=== PATIENT | male | born 1955 | race Caucasian/White ===

== ENCOUNTER 2021-01-23 10:40 | Emergency (ER) | payer MEDICARE, MEDICAID ==
[~2021-01-23] VITALS: Ht 182 cm; Wt 74.0 kg
--- NOTE | 2021-01-23 11:02 | ED General ---
General Stated Complaint: SOB Source of Information: Patient History of Present Illness Date Seen by Provider: Jan 23, 2021 Time Seen by Provider: 10:43 Initial Comments 65 yo male presenting with complaints of increasing shortness of breath, cough, syncope. He feels this might be pneumonia like he had about 2 years ago when he was living in [place]. He still had some left over penicillin from that time and took it. He felt that helped with his swelling in his legs and breathing but did not last. He was coughing and had 3 episodes of passing out last night. He woke up this morning and took a couple hours to cough and clear up his congestion. He used to be a smoker and quit about a year ago. He does not follow with a primary care provider. He did get the Ensenda vaccine this summer. He denies fever chills, chest pain, nausea, vomiting, diarrhea. He has swelling in his feet and cannot lay back because of increased shortness of breath. Associated Systoms: No Chest Pain; Cough; No Diaphoresis, No Fever/Chills, No Headaches, No Loss of Appetite, No Malaise, No Nausea/Vomiting, No Rash, No Seizure; Shortness of Air, Syncope, Weakness Allergies and Home Medications Allergies Coded Allergies: No Known Drug Allergies (Unverified , 01/23/21) Home Medications Azithromycin 250 Mg Tablet, 250 MG PO DAILY Prescribed by: BRENT RANDLE on 01/23/21 1411 Prednisone 20 Mg Tab, 40 MG PO DAILY Prescribed by: BRENT RANDLE on 01/23/21 1427 Patient Home Medication List Home Medication List Reviewed: Yes Review of Systems Review of Systems Constitutional: No chills, No fever EENTM: nose congestion Respiratory: see HPI, cough Cardiovascular: No chest pain; edema Gastrointestinal: no symptoms reported Genitourinary: no symptoms reported Musculoskeletal: no symptoms reported Skin: No rash Psychiatric/Neurological: Denies Headache, Denies Numbness, Denies Paresthesia Past Dubwcvc-Bbnhwf-Vuhzdj Hx Patient Social History Tobacco Use?: Yes Smoking Status: Former Smoker (quit in 2019) Past Medical History Respiratory: Yes Pneumonia (2019) Cardiac: No Neurological: No Genitourinary: No Gastrointestinal: No Musculoskeletal: No Endocrine: No Cancer: No Psychosocial: No Physical Exam Vital Signs Vital Signs - First Documented 01/23/21 10:45 Temp 36.5 Pulse 86 Resp 28 B/P (MAP) 148/91 (110) Pulse Ox 98 O2 Delivery Room Air Capillary Refill : Height, Weight, BMI Height: '" Weight: lbs. oz. kg; BMI Method: General Appearance: WD/WN, Mild Distress (increased work of breathing) HEENT: Pharynx Normal Neck: Full Range of Motion, Normal Inspection, Non Tender, Supple Respiratory: Chest Non Tender, No Accessory Muscle Use, No Respiratory Distress, Decreased Breath Sounds, Wheezing Cardiovascular: Regular Rate, Rhythm, Normal Peripheral Pulses Gastrointestinal: Normal Bowel Sounds, No Pulsatile Mass, Non Tender, Soft Extremity: Normal Capillary Refill, Pedal Edema (1 + pitting BLE edema to above ankles) Neurologic/Psychiatric: Alert, Oriented x3, mess cook II-XII Norm as Tested Skin: Normal Color, Warm/Dry Focused Exam Lactate Level 01/23/21 11:00: Lactic Acid Level 1.76 Lactic Acid Level Laboratory Tests Test 01/23/21 11:00 Lactic Acid Level 1.76 MMOL/L (0.50-2.00) Progress/Results/Core Measures Suspected Sepsis SIRS Temperature: Pulse: Respiratory Rate: Laboratory Tests 01/23/21 11:00: White Blood Count 11.0 Blood Pressure / Mean: 01/23/21 11:00: Lactic Acid Level 1.76 Laboratory Tests 01/23/21 11:00: Creatinine 0.76, INR Comment 0.9, Platelet Count 319, Total Bilirubin 0.5 Results/Orders Lab Results Laboratory Tests Test 01/23/21 11:00 01/23/21 11:14 Range/Units White Blood Count 11.0 4.3-11.0 10^3/uL Red Blood Count 5.16 4.30-5.52 10^6/uL Hemoglobin 16.3 13.3-17.7 g/dL Hematocrit 49 40-54 % Mean Corpuscular Volume 94 80-99 fL Mean Corpuscular Hemoglobin 32 25-34 pg Mean Corpuscular Hemoglobin Concent 34 32-36 g/dL Red Cell Distribution Width 13.4 10.0-14.5 % Platelet Count 319 130-400 10^3/uL Mean Platelet Volume 9.1 9.0-12.2 fL Immature Granulocyte % (Auto) 0 % Neutrophils (%) (Auto) 73 42-75 % Lymphocytes (%) (Auto) 16 12-44 % Monocytes (%) (Auto) 9 0-12 % Eosinophils (%) (Auto) 1 0-10 % Basophils (%) (Auto) 1 0-10 % Neutrophils # (Auto) 8.0 H 1.8-7.8 X 10^3 Lymphocytes # (Auto) 1.8 1.0-4.0 X 10^3 Monocytes # (Auto) 1.0 0.0-1.0 X 10^3 Eosinophils # (Auto) 0.1 0.0-0.3 10^3/uL Basophils # (Auto) 0.1 0.0-0.1 10^3/uL Immature Granulocyte # (Auto) 0.0 0.0-0.1 10^3/uL Prothrombin Time 12.9 12.2-14.7 SEC INR Comment 0.9 0.8-1.4 Activated Partial Thromboplast Time 31 24-35 SEC D-Dimer 0.31 0.00-0.49 UG/ML Sodium Level 136 135-145 MMOL/L Potassium Level 4.2 3.6-5.0 MMOL/L Chloride Level 95 L 98-107 MMOL/L Carbon Dioxide Level 29 21-32 MMOL/L Anion Gap 12 5-14 MMOL/L Blood Urea Nitrogen 12 7-18 MG/DL Creatinine 0.76 0.60-1.30 MG/DL Estimat Glomerular Filtration Rate 102 BUN/Creatinine Ratio 16 Glucose Level 135 H 70-105 MG/DL Lactic Acid Level 1.76 0.50-2.00 MMOL/L Calcium Level 9.3 8.5-10.1 MG/DL Corrected Calcium 8.9 8.5-10.1 MG/DL Total Bilirubin 0.5 0.1-1.0 MG/DL Aspartate Amino Transf (AST/SGOT) 28 5-34 U/L Alanine Aminotransferase (ALT/SGPT) 28 0-55 U/L Alkaline Phosphatase 63 40-136 U/L Troponin I < 0.30 <0.30 NG/ML C-Reactive Protein 0.30 <0.50 MG/DL Pro-B-Type Natriuretic Peptide 32.5 <75.0 PG/ML Total Protein 6.9 6.4-8.2 GM/DL Albumin 4.5 3.2-4.5 GM/DL Influenza Type A (RT-PCR) Not Detected Not Detecte Influenza Type B (RT-PCR) Not Detected Not Detecte SARS-CoV-2 RNA (RT-PCR) Not Detected Not Detecte My Orders Orders - BRENT RANDLE MD Monitor-Rhythm Ecg Trace Only (01/23/21 10:55) Ed Iv/Invasive Line Start (01/23/21 10:55) Cbc With Automated Diff (01/23/21 10:55) Comprehensive Metabolic Panel (01/23/21 10:55) Crp Fs (01/23/21 10:55) Troponin I Fs (01/23/21 10:55) Protime With Inr (01/23/21 10:55) Partial Thromboplastin Time (01/23/21 10:55) Ekg Tracing (01/23/21 10:55) Blood Culture (01/23/21 10:55) Covid 19 Inhouse Test (01/23/21 10:55) Lactic Acid Analyzer (01/23/21 10:55) Influenza A And B By Pcr (01/23/21 10:55) Probnp Fs (01/23/21 10:55) Fibrin Degradation Products (01/23/21 11:02) Chest 1 View Ap/Pa Only (01/23/21 11:02) Albuterol Inhaler (Albuterol) (01/23/21 11:30) Nursing Communication (Order) (01/23/21 11:27) Dexamethasone Injection (Decadron Inje (01/23/21 11:31) Ct Angio Chest W (01/23/21 11:32) Iohexol Injection (Omnipaque 350 Mg/Ml 1 (01/23/21 12:00) Received Contrast (Hold Metformin- Contr (01/23/21 12:00) Sodium Chloride Flush (Catheter Flush Sy (01/23/21 12:00) Ns (Ivpb) (Sodium Chloride 0.9% Ivpb Bag (01/23/21 12:00) Azithromycin Tablet (Zithromax Tablet) (01/23/21 14:13) Medications Given in ED Current Medications Medications Dose Ordered Sig/Sydni Route Start Time Stop Time Status Last Admin Dose Admin Albuterol Sulfate 2 PUFFS RTQ4HR PRN IH 01/23/21 11:30 01/23/21 15:07 DC 01/23/21 11:36 1 GM Iohexol 100 ml ONCE ONCE IV 01/23/21 12:00 01/23/21 12:01 DC 01/23/21 12:18 100 ML Sodium Chloride 10 ml NEEDED PRN IV 01/23/21 12:00 01/23/21 15:07 DC 01/23/21 12:18 10 ML Sodium Chloride 100 ml ONCE ONCE IV 01/23/21 12:00 01/23/21 12:01 DC 01/23/21 12:18 80 ML Vital Signs/I&O 01/23/21 01/23/21 10:45 14:25 Temp 36.5 36.5 Pulse 86 80 Resp 28 16 B/P (MAP) 148/91 (110) 136/80 (110) Pulse Ox 98 98 O2 Delivery Room Air Room Air Capillary Refill : Progress Note #1: Progress Note Check labs, ECG, CXR, blood culture, cardiac enzymes. His fingers were a little cool to touch and initially the O2 sat probe on his fingers was reading 83-85 % but with probe on his forehead it read 100% on room air. Send swab for Covid/Flu. Progress Note #2: Time: 11:29 Progress Note Patient told nurse that he was suffocating and could not breath and he needed an albuterol inhaler right away. Will order inhaler with spacer. CXR shows COPD changes to lung with hyperexpansion. He also has a 17 x 38 mm nodule in left lung. With no old films for comparison and since he has a smoking history will order CT chest with IV contrast. Add on a steroid to see if that helps his breathing as well. Progress Note #3: Time: 11:51 Progress Note CBC and chemistry are stable without acute significant normality. Coags and D- dimer negative. Cardiac enzymes are negative. Awaiting CT scan to evaluate the lung nodule and COPD changes. In the meantime the albuterol inhaler and steroids seem to be helping with his breathing. Progress Note #4: Progress Note CT angiogram negative for PE or infiltrate. Pulmonary nodule still present and radiology recommends a PET/CT scan or CT guided biopsy of the nodule to determine its severity of disease and what if any further treatment is needed. Otherwise he has pulmonary lung disease with COPD changes. Counseled patient on findings and follow-up. Advised to use inhaler with spacer as well as steroid burst and will give a Z-Nash in case there is some mild infection that he has not treated with his leftover antibiotic from home. Stressed importance of follow up with clinic at least for COPD if not for work up of the lung nodule. ECG Initial ECG Impression Date: Jan 23, 2021 Initial ECG Impression Time: 11:09 Initial ECG Rate: 80 Initial ECG Rhythm: Normal Sinus Initial ECG Comparisson: No Previous ECG Available Comment Normal sinus rhythm with a heart rate of [address] interval 157 ms. QT interval 381 ms with a QTc interval of 440 ms. There is baseline wander and artifact on the tracing. There is no prior tracing available for comparison. Diagnostic Imaging Diagonstic Imaging: Xray Plain Films/CT/US/NM/MRI: chest Comments NAME: MINOO LANTIGUA MED REC#: [id number] PT STATUS: REG ER : 1955 PHYSICIAN: BRENT RANDLE MD ADMIT DATE: 01/23/21/ER FS Draft Date of Exam:01/23/21 CHEST 1 VIEW AP/PA ONLY INDICATION: Short of breath. FINDINGS: The portable chest shows normal heart size and vascularity. There is obstructive airway disease. There is a 16 mm nodular density lateral to the left hilum which does not appear to be vascular. I am unable to determine if this is calcified. No infiltrate is seen. There is no effusion or pneumothorax. There is no acute bony abnormality. IMPRESSION: There is a 17 mm abnormal density lateral to the left hilum. This could be compared with old films, if available; otherwise, this could be evaluated further with a CT of the thorax. Dictated on workstation # [id number] Dict: 01/23/21 1122 Trans: 01/23/21 [facility]5 [id number] Interpreted by: MAURY FORD MD Electronically signed by: Reviewed: Reviewed by Me Diagonstic Imaging: CT Plain Films/CT/US/NM/MRI: chest Comments [facility] [place] NAME: MINOO LANTIGUA MED REC#: [id number] PT STATUS: REG ER : 1955 PHYSICIAN: BRENT RANDLE MD ADMIT DATE: 01/23/21/ER FS Signed Date of Exam:01/23/21 CT ANGIO CHEST W PROCEDURE: CT angiography of the chest with contrast. TECHNIQUE: Multiple contiguous axial images were obtained through the chest after uneventful bolus administration of intravenous contrast. 3D reconstructed CTA MIP acquisitions were also performed. Auto Exposure Controls were utilized during the CT exam to meet ALARA standards for radiation dose reduction. DATE: January 23, 2021. COMPARISON: Chest radiograph January 23, 2021. INDICATION: 65-year-old male, shortness of breath. Possible Covid 19 infection. FINDINGS: There are peripheral predominantly linear opacities in the superior aspect of the right lower lobe, most likely relating to focal atelectasis or scarring. There is a 2 mm right upper lobe pulmonary nodule on axial image 19. There is a left upper lobe pulmonary nodule on axial image 79 measuring up to 1.7 cm in size. There is no otherwise noted focal airspace consolidation. There is no pneumothorax. There is no pleural effusion. The central airways are patent. There is no identified pulmonary embolus. The main pulmonary artery diameter is within normal limits. The heart is not enlarged. There is no pericardial effusion. There are atherosclerotic calcifications. There is no identified mediastinal, hilar, or axillary lymph node meeting CT size criteria for adenopathy. The imaged portions of the upper abdomen are grossly unremarkable. There are multilevel degenerative changes of the spine. There is no identified acute bony abnormality. IMPRESSION: 1. There is a 1.7 cm left upper lobe pulmonary nodule. PET/CT or CT-guided biopsy is recommended for definitive evaluation. 2. No identified acute cardiopulmonary abnormality. 3. There is a 2 mm right upper lobe pulmonary nodule. Dictated by: Dictated on workstation # [id number] Dict: 01/23/21 1237 Trans: 01/23/21 1347 [id number] Interpreted by: JESICA RODRIGUEZ MD Electronically signed by: JESICA RODRIGUEZ MD 01/23/21 1343 Reviewed: Reviewed by Me Departure Impression Primary Impression: Shortness of breath Additional Impressions: Cough in adult Chronic bronchitis with COPD (chronic obstructive pulmonary disease) Left upper lobe pulmonary nodule Disposition: 01 HOME, SELF-CARE Condition: Stable Departure-Patient Inst. Decision time for Depature: 14:27 Referrals: OSEAS BURK MD NO,LOCAL PHYSICIAN (PCP) Primary Care Physician [facility] Patient Instructions: COPD Exacerbation, Adult ED, How to Use a Metered Dose Inhaler ED, How to Use a Spacer, Pulmonary Nodule, Shortness of Breath, Adult ED Add. Discharge Instructions: Establish care with primary care provider. Set up a PET/CT scan or CT scan with biopsy of the lung nodule to better determine what the nodule is from and what treatment you would need for it. Use inhaler and spacer to help with cough and shortness of breath. Steroid and antibiotic will help with inflammation and chronic bronchitis with COPD. Use the inhaler 2 puffs every 4 hours as needed for cough/shortness of breath You could call the [facility] clinic at [phone] to get established with a primary care provider. You could also call to see Dr. Burk or provider in her clinic. Scripts Prednisone (Prednisone) 20 Mg Tab 40 MG PO DAILY for COPD for 4 Days, #8 TAB 0 Refills Prov: BRENT RANDLE MD 01/23/21 Azithromycin (Azithromycin) 250 Mg Tablet 250 MG PO DAILY for Chronic bronchitis for 4 Days, #4 TAB 0 Refills Prov: BRENT RANDLE MD 01/23/21 BRENT RANDLE MD Jan 23, 2021 11:02
[2021-01-23 11:24] LABS: BASOPHILS # (AUTO) 0.1 10^3/uL (0.0-0.1); BASOPHILS % (AUTO) 1 % (0-10); EOSINOPHILS # (AUTO) 0.1 10^3/uL (0.0-0.3); EOSINOPHILS % (AUTO) 1 % (0-10); HEMATOCRIT 49 % (40-54); HEMOGLOBIN 16.3 g/dL (13.3-17.7); LYMPHOCYTES # (AUTO) 1.8 X 10^3 (1.0-4.0); LYMPHOCYTES % (AUTO) 16 % (12-44); MEAN CORPUSCULAR HEMOGLOBIN 32 pg (25-34); MEAN CORPUSCULAR HGB CONC 34 g/dL (32-36); MEAN CORPUSCULAR VOLUME 94 fL (80-99); MEAN PLATELET VOLUME 9.1 fL (9.0-12.2); MONOCYTES % (AUTO) 9 % (0-12); NEUTROPHILS % (AUTO) 73 % (42-75); PLATELET COUNT 319 10^3/uL (130-400)
--- NOTE | 2021-01-23 11:25 | Diagnostic Imaging Report ---
INDICATION: Short of breath. FINDINGS: The portable chest shows normal heart size and vascularity. There is obstructive airway disease. There is a 16 mm nodular density lateral to the left hilum which does not appear to be vascular. I am unable to determine if this is calcified. No infiltrate is seen. There is no effusion or pneumothorax. There is no acute bony abnormality. IMPRESSION: There is a 17 mm abnormal density lateral to the left hilum. This could be compared with old films, if available; otherwise, this could be evaluated further with a CT of the thorax. Dictated by: Dictated on workstation # [id number]
[2021-01-23] MEDS ORDERED: RT-ALBUTEROL HFA 8.5 GM INHALER IH PRN (11:30)
[2021-01-23 11:37] LABS: ALANINE AMINOTRANSFERASE 28 U/L (0-55); ALKALINE PHOSPHATASE 63 U/L (40-136); BILIRUBIN,TOTAL 0.5 MG/DL (0.1-1.0); BUN/CREATININE RATIO 16; CALCIUM 9.3 MG/DL (8.5-10.1); CARBON DIOXIDE 29 MMOL/L (21-32); CHLORIDE 95 MMOL/L (98-107); CREATININE SERUM 0.76 MG/DL (0.60-1.30); GFR ESTIMATED 102; GLUCOSE 135 MG/DL (70-105); POTASSIUM 4.2 MMOL/L (3.6-5.0); SODIUM 136 MMOL/L (135-145)
[2021-01-23 11:38] LABS: ALBUMIN 4.5 GM/DL (3.2-4.5); TOTAL PROTEIN 6.9 GM/DL (6.4-8.2)
[2021-01-23 11:40] LABS: INR 0.9 (0.8-1.4); PROTHROMBIN TIME PATIENT 12.9 SEC (12.2-14.7)
[2021-01-23] MEDS ORDERED: IOHEXOL 350 MG/ML 100 ML (OMNIPAQUE 350) VIAL IV ONE (12:00)
[2021-01-23] MEDS ORDERED: HOLD METFORMIN - RECEIVED CONTRAST 20 ML VIAL IV SCH (12:00)
[2021-01-23] MEDS ORDERED: NS 100 ML (IVPB) BAG IV ONE (12:00)
[2021-01-23] MEDS ORDERED: CATHETER FLUSH 10 ML SYR IV PRN (12:00)
--- NOTE | 2021-01-23 13:24 | Diagnostic Imaging Report ---
PROCEDURE: CT angiography of the chest with contrast. TECHNIQUE: Multiple contiguous axial images were obtained through the chest after uneventful bolus administration of intravenous contrast. 3D reconstructed CTA MIP acquisitions were also performed. Auto Exposure Controls were utilized during the CT exam to meet ALARA standards for radiation dose reduction. DATE: January 23, 2021. COMPARISON: Chest radiograph January 23, 2021. INDICATION: 65-year-old male, shortness of breath. Possible Covid 19 infection. FINDINGS: There are peripheral predominantly linear opacities in the superior aspect of the right lower lobe, most likely relating to focal atelectasis or scarring. There is a 2 mm right upper lobe pulmonary nodule on axial image 19. There is a left upper lobe pulmonary nodule on axial image 79 measuring up to 1.7 cm in size. There is no otherwise noted focal airspace consolidation. There is no pneumothorax. There is no pleural effusion. The central airways are patent. There is no identified pulmonary embolus. The main pulmonary artery diameter is within normal limits. The heart is not enlarged. There is no pericardial effusion. There are atherosclerotic calcifications. There is no identified mediastinal, hilar, or axillary lymph node meeting CT size criteria for adenopathy. The imaged portions of the upper abdomen are grossly unremarkable. There are multilevel degenerative changes of the spine. There is no identified acute bony abnormality. IMPRESSION: 1. There is a 1.7 cm left upper lobe pulmonary nodule. PET/CT or CT-guided biopsy is recommended for definitive evaluation. 2. No identified acute cardiopulmonary abnormality. 3. There is a 2 mm right upper lobe pulmonary nodule. Dictated by: Dictated on workstation # [id number]
[2021-01-23] MEDS ORDERED: AZIT250T12 PO (14:11)
[2021-01-23] MEDS ORDERED: AZITHROMYCIN 250 MG TAB (ZITHROMAX) PO STA (14:13)
[2021-01-23 14:25] VITALS: BP 136/80
[2021-01-23] MEDS ORDERED: PRD20T PO (14:27)
== END 2021-01-23 14:55 | disposition home or self-care (01) ==
LOC: ER FS 10:43
DX: R06.02 Shortness of breath (principal); R05 Cough; J44.9 Chronic obstructive pulmonary disease, unspecified; R91.1 Solitary pulmonary nodule; Z87.891 Personal history of nicotine dependence; Z20.822 Contact with and (suspected) exposure to COVID-19
CPT/HCPCS: 36415; 71045; 71275; 80053; 83605; 83880; 84484; 85025; 85379; 85610; 85730; 86141; 87040; 87636; 93005; 93041; 96374

== ENCOUNTER → 2021-04-08 | Outpatient (CLI) | payer MEDICARE, MEDICAID ==
[~2021-04-08] MED LIST: AZIT250T12 PO; LIDOCAINE 1% INJ 20 ML 20 ML VIAL INJ ONE; MIDAZOLAM 2 MG/2 ML (VERSED) VIAL IVP ONE; NS IV 1000 ML 1,000 ML IV STA; PRD20T PO; fentaNYL INJ 100 MCG/2 ML AMP IVP ONE
== END ==
LOC: SDC 08:21
PROVIDERS: ATTEND Nurse Practitioner Family
DX: R91.8 Other nonspecific abnormal finding of lung field (principal); R06.00 Dyspnea, unspecified